=== PATIENT | female | born 1995 | race Caucasian/White ===

== ENCOUNTER 2020-10-19 17:49 | Emergency (ER) | payer BC ==
[2020-10-19 19:01] LABS: Bilirubin Neg (Negative); Blood, Urine 250 (Negative); Clarity Clear (Clear); Glucose, Urine (Dipstick) Normal (Negative); Ketone, Urine 50 mg/dL (Negative); Leukocyte Negative (Negative); Nitrite Negative (Negative); Protein, Urine (Dipstick) Negative (Neg-Trace); Urobilinogen Normal mg/dL (Less than 2); pH, Urine 6.5 (5.0-9.0)
[2020-10-19 19:30] LABS: Bacteria/HPF Rare-Few HPF (None Seen); RBC/HPF 0-3 HPF (0-3); Squamous Epithelial 0-3 HPF (0-3); WBC/HPF 0-3 HPF (0-3)
[2020-10-19 19:38] LABS: #Basophils 0.1 10x3/uL (0.0-0.2); #Eosinphils 0.2 10x3/uL (0.0-0.5); #Monocytes 0.7 10x3/uL (0.0-1.1); #Neutrophils 10.6 10x3/uL (1.5-8.4); %Basophils 0.4 % (0.0-2.0); %Eosinophils 1.4 % (0.0-6.0); %Lymphocytes 17.2 % (18.0-47.0); %Monocytes 4.7 % (0.0-10.0); %Neutrophils 75.8 % (40.0-75.0); Hemoglobin 13.8 g/dL (12.0-15.5); Mean Corpuscular HGB CONC 34.8 g/dL (32.0-36.0); Mean Corpuscular Hemoglobin 29.5 pg (27.0-33.0); Mean Corpuscular Volume 84.8 fl (81.6-98.3); Mean Platelet Volume 9.6 fl (7.4-10.4); Platelet Count 285 10x3/uL (150-450); RBC Distribution Width 12.8 % (11.5-14.5); Red Blood Cell (RBC) Count 4.68 10x6/uL (3.90-5.03)
== END 2020-10-19 22:40 | disposition home or self-care (01) ==
LOC: CSHERS 17:49
DX: O20.0 Threatened abortion (principal); Z3A.09 9 weeks gestation of pregnancy
CPT/HCPCS: 36415; 81003; 81015; 84702; 85025; 86900; 86901; 90384; 96372

== ENCOUNTER 2021-05-04 13:54 | Inpatient (IN) | payer BC ==
[2021-05-04 14:28] VITALS: BMI 28.8
[2021-05-04] MEDS ORDERED: Docusate 100 MG CAP PO PRN (14:54)
[2021-05-04] MEDS ORDERED: Lidocaine 1% (PF) 30 ML VIAL SC PRN (14:54)
[2021-05-04] MEDS ORDERED: Misoprostol 200 MCG TAB PR PRN (14:54)
[2021-05-04] MEDS ORDERED: Promethazine HCl 25 MG/ML VIAL IM PRN (14:54)
[2021-05-04] MEDS ORDERED: Ibuprofen 800 MG TAB PO PRN (14:54)
[2021-05-04] MEDS ORDERED: Zolpidem Tartrate 5 MG TAB PO PRN (14:54)
[2021-05-04] MEDS ORDERED: Acetaminophen 500 MG TAB PO PRN (14:54)
[2021-05-04] MEDS ORDERED: HYDROcodone/Acetaminophen 5/325 mg Tablet PO PRN ×2 (14:54)
[2021-05-04] MEDS ORDERED: hydrALAZINE 20 MG/ML VIAL SLOW IVP PRN (14:54)
[2021-05-04] MEDS ORDERED: Ondansetron PF 4 MG/2 ML Vial IVP PRN (14:54)
[2021-05-04] MEDS ORDERED: Diphenoxylate HCl/Atropine Tablet PO PRN ×2 (14:54)
[2021-05-04] MEDS ORDERED: Butorphanol Tartrate 1 MG/ML VIAL SLOW IVP PRN (14:54)
[2021-05-04] MEDS ORDERED: Methylergonovine 0.2 MG/ML VIAL IM PRN (14:54)
[2021-05-04] MEDS ORDERED: NS w/ Oxytocin 30 units 500 ML IVPB SCH (15:00)
[2021-05-04] MEDS ORDERED: NS w/ Oxytocin 30 units 500 ML IV SCH ×2 (15:00)
[2021-05-04] MEDS: Lactated Ringer's 1,000 ML IV SCH (15:25)
[2021-05-04] MEDS: Misoprostol 100 MCG TAB VAG SCH ×3 (15:26→22:28)
[2021-05-04 15:41] LABS: Hemoglobin 14.5 g/dL (12.0-15.5); Mean Corpuscular HGB CONC 34.4 g/dL (32.0-36.0); Mean Corpuscular Hemoglobin 29.8 pg (27.0-33.0); Mean Corpuscular Volume 86.7 fl (81.6-98.3); Mean Platelet Volume 10.9 fl (7.4-10.4); Platelet Count 261 10x3/uL (150-450); RBC Distribution Width 13.6 % (11.5-14.5); Red Blood Cell (RBC) Count 4.87 10x6/uL (3.90-5.03); White Blood Cell (WBC) Count 10.3 10x3/uL (3.5-10.5)
[2021-05-04 16:17] LABS: HIV (1/2) Antibody/Antigen Non-Reactive (NonReactive); HIV 1/2 INDEX 0.08 S/CO (<1.00); Hep B Surf Ag Non-Reactive S/CO (NonReactive)
[2021-05-04 16:18] LABS: Syphilis Antibody Nonreactive (Nonreactive); Syphilis Antibody Index 0.07 S/CO (<1.00 Non-Reactive)
[2021-05-04 16:19] LABS: HBSAg Index 0.18 S/CO (0-0.99)
[2021-05-04 16:36] LABS: SARS-CoV-2 NAA Rapid Test Not Detected (NotDetected)
[2021-05-05] MEDS ORDERED: Fentanyl 2 mcg/Bup 0.1% Cadd 100 ML ONE (06:39)
[2021-05-05] MEDS: Lactated Ringer's 1,000 ML IV SCH ×2 (07:51→12:31)
[2021-05-05] MEDS ORDERED: Naloxone HCl 0.4 mg/ml Vial IVP PRN ×2 (09:04)
[2021-05-05] MEDS ORDERED: Ondansetron PF 4 MG/2 ML Vial IVP PRN ×2 (09:04→15:16)
[2021-05-05] MEDS ORDERED: Hydrocerin (Eucerin) Cream 120 gm Jar TOP PRN (09:04)
[2021-05-05] MEDS ORDERED: Lactated Ringer's 500 ML IV PRN (09:04)
[2021-05-05] MEDS ORDERED: diphenhydrAMINE 50 MG/ML VIAL IVP PRN (09:04)
[2021-05-05] MEDS ORDERED: Acetaminophen 325 MG TAB PO PRN (09:04)
[2021-05-05] MEDS ORDERED: ePHEDrine Sulfate 50 MG/10 ML VIAL SLOW IVP PRN (09:04)
[2021-05-05] MEDS ORDERED: Promethazine HCl 25 MG/ML VIAL IM PRN (09:04)
[2021-05-05] MEDS ORDERED: Communication Order-Pharmacy FS SCH (09:15)
[2021-05-05] MEDS ORDERED: Fentanyl 2 mcg/Bupivacaine 0.1% Cassette 100 ML EPIDURAL SCH (09:15)
[2021-05-05] MEDS ORDERED: HYDROcodone/Acetaminophen 5/325 mg Tablet PO PRN ×2 (15:16)
[2021-05-05] MEDS ORDERED: Bisacodyl 10 MG SUPP PR PRN (15:16)
[2021-05-05] MEDS ORDERED: Misoprostol 200 MCG TAB VAG PRN (15:16)
[2021-05-05] MEDS ORDERED: Milk Of Magnesia 30 ML UDCUP PO PRN (15:16)
[2021-05-05] MEDS ORDERED: Benzocaine-Menthol 82.5 ML CAN TOP PRN (15:16)
[2021-05-05] MEDS ORDERED: Preparation H Ointment 28 GM TUBE PR PRN (15:16)
[2021-05-05] MEDS ORDERED: hydrALAZINE 20 MG/ML VIAL SLOW IVP PRN (15:16)
[2021-05-05] MEDS ORDERED: Boostrix 0.5 ML (Tdap) VIAL IM ONE (15:16)
[2021-05-05] MEDS ORDERED: diphenhydrAMINE 25 MG CAP PO PRN (15:16)
[2021-05-05] MEDS ORDERED: Zolpidem Tartrate 5 MG TAB PO PRN (15:16)
[2021-05-05] MEDS: Ibuprofen 800 MG TAB PO SCH (23:13)
[2021-05-06] MEDS: Misoprostol 100 MCG TAB VAG SCH ×2 (02:54→02:55)
[2021-05-06] MEDS: Lactated Ringer's 1,000 ML IV SCH (02:55)
[2021-05-06] MEDS: Docusate Calcium (SURFAK) 240 MG CAP PO SCH ×3 (02:57→21:50)
[2021-05-06] MEDS: Ferrous Sulfate 325 MG TAB PO SCH ×3 (02:57→20:47)
[2021-05-06] MEDS: Ibuprofen 800 MG TAB PO SCH ×3 (05:50→21:50)
[2021-05-06] MEDS ORDERED: Prenatal Vitamin 1 TAB PO SCH (09:00)
[2021-05-06] MEDS ORDERED: Bupivacaine 0.25% HCL 30 ML VIAL ONE (19:36)
[2021-05-07] MEDS: Ibuprofen 800 MG TAB PO SCH (05:02)
[2021-05-07 07:51] VITALS: BP 128/82; TEMP 98.1
[2021-05-07] MEDS: Ferrous Sulfate 325 MG TAB PO SCH (12:26)
== END 2021-05-07 11:58 | disposition home or self-care (01) | DRG 807 ==
LOC: CSHLD 13:54 → CSHPP 05-06 01:10
PROVIDERS: ADMIT Obstetrics & Gynecology; ATTEND Obstetrics & Gynecology
PROC: 3E033VJ Introduction of Other Hormone into Peripheral Vein, Percutaneous Approach (ICD-10-PCS; principal; 2021-05-04)
PROC: 10E0XZZ Delivery of Products of Conception, External Approach (ICD-10-PCS; 2021-05-04)
DX: O13.4 Gestational [pregnancy-induced] hypertension without significant proteinuria, complicating childbirth (principal); Z37.0 Single live birth; Z3A.38 38 weeks gestation of pregnancy; Z20.822 Contact with and (suspected) exposure to COVID-19
CPT/HCPCS: 36415; 51702; 85027; 86780; 86850; 86870; 86900; 86901; 87340; 87389; J2001; J2590; J7120; S0020; U0002